=== PATIENT | male | born 1960 | race Caucasian/White ===

== ENCOUNTER 2022-01-11 15:13 | Outpatient (CLI) | payer OTHER ==
[2022-01-12 12:39] LABS: SARS-CoV-2 PCR by NAA Not Detected (NotDetected)
== END 2022-01-11 15:14 | disposition home or self-care (01) ==
LOC: CSHLAB 15:13
PROVIDERS: ATTEND Family Medicine
DX: Z20.822 Contact with and (suspected) exposure to COVID-19 (principal)
CPT/HCPCS: U0003; U0005

== ENCOUNTER 2023-03-31 09:42 | Inpatient (IN) | payer OTHER ==
[2023-03-31 10:32] LABS: #Basophils 0.1 10x3/uL (0.0-0.2); #Monocytes 2.7 10x3/uL (0.0-1.1); #Neutrophils 12.8 10x3/uL (1.5-8.4); %Basophils 0.7 % (0.0-2.0); %Eosinophils 0.2 % (0.0-6.0); %Monocytes 14.2 % (0.0-10.0); %Neutrophils 66.5 % (40.0-75.0); Mean Corpuscular HGB CONC 34.9 g/dL (32.0-36.0); Mean Corpuscular Hemoglobin 32.5 pg (27.0-33.0); Platelet Count 395 10x3/uL (150-450); RBC Distribution Width 12.4 % (11.5-14.5); Red Blood Cell (RBC) Count 4.31 10x6/uL (4.32-5.72); White Blood Cell (WBC) Count 19.2 10x3/uL (3.5-10.5)
[2023-03-31 11:04] LABS: ALT (SGPT) 10 U/L (8-55); AST (SGOT) 20 U/L (5-34); Albumin 3.3 g/dL (3.4-4.8); Alkaline Phosphatase 55 U/L (40-110); Anion Gap 22 mmol/L (10-20); BUN (Urea Nitrogen) 40 mg/dL (8.4-25.7); Calc. Creatinine Clearance 0 mL/min (70-130); Calcium 8.5 mg/dL (7.8-10.44); Carbon Dioxide 25 mmol/L (23-31); Chloride 80 mmol/L (98-107); Estimated GFR 38; Globulin 3.4 g/dL (2.4-3.5); Glucose 174 mg/dL (80-115); Potassium 3.8 mmol/L (3.5-5.1); Protein, Total 6.7 g/dL (5.8-8.1); Sodium 123 mmol/L (136-145)
[2023-03-31] MEDS ORDERED: Cefepime 2 GM VIAL ONE (11:34)
[2023-03-31] MEDS ORDERED: Vancomycin 1 GM VIAL ONE (11:34)
[2023-03-31] MEDS ORDERED: Acetaminophen 325 MG TAB PO PRN (12:58)
[2023-03-31] MEDS ORDERED: Ondansetron PF 4 MG/2 ML Vial IVP PRN (12:58)
[2023-03-31 14:10] LABS: Actual Bicarbonate (HCO3v) 29.1 mEq/L (22-28); Base Excess 4.7 mEq/L (-2 - +2); Calcium, Ionized (venous) 0.95 mmol/L (1.16-1.32); Chloride (VBG) 89 mmol/L (98-106); Hematocrit-VBG 40 % (42.0-52.0); Hemoglobin (Hb) 13.7 g/dL (13.1-17.2); Potassium (VBG) 3.29 mmol/L (3.70-5.30); Puncture Site Other Site; RapidComm Collect By LAB; pH (venous) 7.455 (7.32-7.43)
[2023-03-31 14:14] LABS: #Basophils 0.1 10x3/uL (0.0-0.2); #Monocytes 2.4 10x3/uL (0.0-1.1); #Neutrophils 13.8 10x3/uL (1.5-8.4); %Basophils 0.4 % (0.0-2.0); %Eosinophils 0.1 % (0.0-6.0); %Lymphocytes 13.6 % (18.0-47.0); %Monocytes 12.3 % (0.0-10.0); %Neutrophils 71.8 % (40.0-75.0); Hemoglobin 12.3 g/dL (13.5-17.5); Mean Corpuscular HGB CONC 34.8 g/dL (32.0-36.0); Mean Corpuscular Hemoglobin 32.1 pg (27.0-33.0); Mean Corpuscular Volume 92.2 fl (81.2-95.1); Mean Platelet Volume 9.7 fl (7.4-10.4); Platelet Count 378 10x3/uL (150-450); RBC Distribution Width 12.4 % (11.5-14.5); Red Blood Cell (RBC) Count 3.83 10x6/uL (4.32-5.72); White Blood Cell (WBC) Count 19.3 10x3/uL (3.5-10.5)
[2023-03-31 14:27] LABS: Bilirubin Neg (Negative); Blood, Urine Negative (Negative); Clarity Clear (Clear); Glucose, Urine (Dipstick) >=1000 mg/dL (Negative); Ketone, Urine 5 mg/dL (Negative); Leukocyte Negative (Negative); Nitrite Negative (Negative); Protein, Urine (Dipstick) 15 mg/dl (Neg-Trace); pH, Urine 6.5 (5.0-9.0)
[2023-03-31] MEDS: Sodium Chloride 0.9% 1,000 ML IV SCH ×2 (14:36→20:24)
[2023-03-31 14:44] LABS: Bacteria/HPF Rare-Few HPF (None Seen); CAUTI Indications for Culture Fever or rigors; RBC/HPF None Seen HPF (0-3); Squamous Epithelial 0-3 HPF (0-3); WBC/HPF None Seen HPF (0-3)
[2023-03-31 14:46] LABS: Urine Culture Reflex No No
[2023-03-31] MEDS: Sodium Bicarbonate Tab 325 MG TAB PO SCH ×2 (16:10→20:24)
[2023-03-31] MEDS ORDERED: Dextrose 5% in Water 1,000 ML IV PRN (16:37)
[2023-03-31] MEDS ORDERED: HumaLOG 300 UNITS/3 ML VIAL SC PRN (16:37)
[2023-03-31] MEDS ORDERED: Dextrose 50% Abboject 50 ML SYRINGE SLOW IVP PRN (16:37)
[2023-03-31] MEDS ORDERED: Glucagon 1 MG/ML KIT IM PRN (16:37)
[2023-03-31 19:47] VITALS: BMI 26.3
[2023-03-31] MEDS: Cefepime 2 GM in Sodium Chloride 0.9% 100 ML IVPB SCH (22:32)
[2023-04-01] MEDS: Sodium Chloride 0.9% 1,000 ML IV SCH ×4 (02:08→23:29)
[2023-04-01 04:03] LABS: #Basophils 0.1 10x3/uL (0.0-0.2); #Monocytes 1.7 10x3/uL (0.0-1.1); #Neutrophils 9.7 10x3/uL (1.5-8.4); %Basophils 0.4 % (0.0-2.0); %Eosinophils 0.3 % (0.0-6.0); %Lymphocytes 20.9 % (18.0-47.0); %Monocytes 11.1 % (0.0-10.0); %Neutrophils 65.4 % (40.0-75.0); Hemoglobin 10.7 g/dL (13.5-17.5); Mean Corpuscular HGB CONC 34.1 g/dL (32.0-36.0); Mean Platelet Volume 9.9 fl (7.4-10.4); Platelet Count 426 10x3/uL (150-450); RBC Distribution Width 12.6 % (11.5-14.5); Red Blood Cell (RBC) Count 3.34 10x6/uL (4.32-5.72); White Blood Cell (WBC) Count 14.8 10x3/uL (3.5-10.5)
[2023-04-01 04:07] LABS: Anion Gap 14 mmol/L (10-20); BUN (Urea Nitrogen) 29 mg/dL (8.4-25.7); Calc. Creatinine Clearance 76 mL/min (70-130); Calcium 8.1 mg/dL (7.8-10.44); Carbon Dioxide 27 mmol/L (23-31); Chloride 94 mmol/L (98-107); Estimated GFR 63; Glucose 111 mg/dL (80-115); Sodium 132 mmol/L (136-145)
[2023-04-01] MEDS ORDERED: Potassium Chloride 20 MEQ TAB PO SCH (08:00)
[2023-04-01] MEDS: Sodium Bicarbonate Tab 325 MG TAB PO SCH ×3 (08:33→21:07)
[2023-04-01] MEDS: Cefepime 2 GM in Sodium Chloride 0.9% 100 ML IVPB SCH ×2 (12:19→23:29)
[2023-04-01] MEDS ORDERED: Vancomycin 1.5 GRAM/300 ML BAG 1.5 GM in Premix Bag 1 BAG IVPB SCH (13:00)
[2023-04-01] MEDS: Acetaminophen 325 MG TAB PO SCH ×2 (16:11→21:06)
[2023-04-01] MEDS: Atorvastatin Calcium 20 MG TAB PO SCH (21:07)
[2023-04-01] MEDS ORDERED: Sodium Chloride 0.9% 1,000 ML ONE (23:26)
[2023-04-02] MEDS: Sodium Chloride 0.9% 1,000 ML IV SCH ×2 (05:08→12:18)
[2023-04-02 06:41] LABS: Lactic Acid 1.4 mmol/L (0.5-2.2)
[2023-04-02 06:42] LABS: Anion Gap 15 mmol/L (10-20); BUN (Urea Nitrogen) 22 mg/dL (8.4-25.7); Calc. Creatinine Clearance 102 mL/min (70-130); Calcium 8.2 mg/dL (7.8-10.44); Carbon Dioxide 21 mmol/L (23-31); Chloride 105 mmol/L (98-107); Estimated GFR 90; Glucose 98 mg/dL (80-115); Magnesium 1.5 mg/dL (1.6-2.6); Sodium 138 mmol/L (136-145)
[2023-04-02 07:02] LABS: #Basophils 0.1 10x3/uL (0.0-0.2); #Eosinphils 0.3 10x3/uL (0.0-0.5); #Monocytes 1.6 10x3/uL (0.0-1.1); #Neutrophils 9.8 10x3/uL (1.5-8.4); %Basophils 0.7 % (0.0-2.0); %Eosinophils 2.1 % (0.0-6.0); %Lymphocytes 20.9 % (18.0-47.0); %Monocytes 10.2 % (0.0-10.0); %Neutrophils 63.9 % (40.0-75.0); Hemoglobin 10.9 g/dL (13.5-17.5); Mean Corpuscular HGB CONC 33.3 g/dL (32.0-36.0); Mean Corpuscular Hemoglobin 32.2 pg (27.0-33.0); Mean Corpuscular Volume 96.5 fl (81.2-95.1); Mean Platelet Volume 9.5 fl (7.4-10.4); Platelet Count 552 10x3/uL (150-450); RBC Distribution Width 13.3 % (11.5-14.5); Red Blood Cell (RBC) Count 3.39 10x6/uL (4.32-5.72); White Blood Cell (WBC) Count 15.3 10x3/uL (3.5-10.5)
[2023-04-02] MEDS: Sodium Bicarbonate Tab 325 MG TAB PO SCH ×3 (08:01→21:13)
[2023-04-02] MEDS: Acetaminophen 325 MG TAB PO SCH ×3 (08:02→21:13)
[2023-04-02] MEDS: Magnesium Oxide 400 MG TAB PO SCH (08:03)
[2023-04-02] MEDS: Empagliflozin 25 MG TAB PO SCH (08:03)
[2023-04-02] MEDS ORDERED: Potassium Chloride 20 MEQ TAB PO SCH (09:00)
[2023-04-02 12:15] LABS: Vancomycin, Trough 9.8 ug/mL
[2023-04-02] MEDS: Cefepime 2 GM in Sodium Chloride 0.9% 100 ML IVPB SCH ×2 (12:18→23:37)
[2023-04-02] MEDS: Vancomycin HCl 1 GM in Sodium Chloride 0.9% 250 ML 250 ML IVPB SCH (13:20)
[2023-04-02] MEDS ORDERED: Polyethylene Glycol 3350 17 GM Packet PO PRN (13:26)
[2023-04-02] MEDS ORDERED: Bisacodyl 10 MG SUPP PR PRN (13:26)
[2023-04-02] MEDS: Atorvastatin Calcium 20 MG TAB PO SCH (21:15)
[2023-04-03] MEDS: Vancomycin HCl 1 GM in Sodium Chloride 0.9% 250 ML 250 ML IVPB SCH ×2 (01:02→15:39)
[2023-04-03 07:31] LABS: #Basophils 0.1 10x3/uL (0.0-0.2); #Eosinphils 0.7 10x3/uL (0.0-0.5); #Monocytes 1.2 10x3/uL (0.0-1.1); #Neutrophils 7.6 10x3/uL (1.5-8.4); %Eosinophils 5.2 % (0.0-6.0); %Lymphocytes 25.5 % (18.0-47.0); %Monocytes 9.1 % (0.0-10.0); %Neutrophils 56.6 % (40.0-75.0); Hemoglobin 12.2 g/dL (13.5-17.5); Mean Corpuscular HGB CONC 33.3 g/dL (32.0-36.0); Mean Corpuscular Hemoglobin 32.6 pg (27.0-33.0); Mean Corpuscular Volume 97.9 fl (81.2-95.1); Mean Platelet Volume 9.3 fl (7.4-10.4); Platelet Count 664 10x3/uL (150-450); RBC Distribution Width 13.8 % (11.5-14.5); Red Blood Cell (RBC) Count 3.74 10x6/uL (4.32-5.72); White Blood Cell (WBC) Count 13.4 10x3/uL (3.5-10.5)
[2023-04-03 07:41] LABS: Anion Gap 16 mmol/L (10-20); BUN (Urea Nitrogen) 18 mg/dL (8.4-25.7); Calc. Creatinine Clearance 113 mL/min (70-130); Calcium 8.9 mg/dL (7.8-10.44); Carbon Dioxide 21 mmol/L (23-31); Chloride 106 mmol/L (98-107); Estimated GFR 97; Glucose 82 mg/dL (80-115); Potassium 3.4 mmol/L (3.5-5.1); Sodium 140 mmol/L (136-145)
[2023-04-03] MEDS: Sodium Bicarbonate Tab 325 MG TAB PO SCH ×3 (09:00→21:29)
[2023-04-03] MEDS: Acetaminophen 325 MG TAB PO SCH ×3 (09:00→21:29)
[2023-04-03] MEDS: Polyethylene Glycol 3350 17 GM Packet PO SCH (15:43)
[2023-04-03] MEDS: Magnesium Oxide 400 MG TAB PO SCH (15:43)
[2023-04-03] MEDS: Empagliflozin 25 MG TAB PO SCH (15:44)
[2023-04-03] MEDS: Cefepime 2 GM in Sodium Chloride 0.9% 100 ML IVPB SCH (18:13)
[2023-04-03] MEDS: Atorvastatin Calcium 20 MG TAB PO SCH (21:30)
[2023-04-04 00:30] LABS: Vancomycin, Trough 17.4 ug/mL
[2023-04-04] MEDS: Vancomycin HCl 1 GM in Sodium Chloride 0.9% 250 ML 250 ML IVPB SCH (01:21)
[2023-04-04 05:58] LABS: #Basophils 0.1 10x3/uL (0.0-0.2); #Eosinphils 0.6 10x3/uL (0.0-0.5); #Monocytes 0.9 10x3/uL (0.0-1.1); #Neutrophils 5.8 10x3/uL (1.5-8.4); %Basophils 0.9 % (0.0-2.0); %Eosinophils 5.5 % (0.0-6.0); %Monocytes 8.3 % (0.0-10.0); Hemoglobin 11.1 g/dL (13.5-17.5); Mean Corpuscular Hemoglobin 32.4 pg (27.0-33.0); Mean Platelet Volume 8.9 fl (7.4-10.4); Platelet Count 664 10x3/uL (150-450); Red Blood Cell (RBC) Count 3.43 10x6/uL (4.32-5.72); White Blood Cell (WBC) Count 10.5 10x3/uL (3.5-10.5)
[2023-04-04 06:07] LABS: Anion Gap 16 mmol/L (10-20); BUN (Urea Nitrogen) 18 mg/dL (8.4-25.7); Calc. Creatinine Clearance 121 mL/min (70-130); Calcium 8.7 mg/dL (7.8-10.44); Carbon Dioxide 21 mmol/L (23-31); Chloride 106 mmol/L (98-107); Estimated GFR 99; Glucose 88 mg/dL (80-115); Sodium 140 mmol/L (136-145)
[2023-04-04] MEDS ORDERED: Potassium Chloride 20 MEQ TAB PO SCH (09:00)
[2023-04-04] MEDS: Acetaminophen 325 MG TAB PO SCH ×3 (09:13→22:01)
[2023-04-04] MEDS: Sodium Bicarbonate Tab 325 MG TAB PO SCH ×3 (09:14→22:00)
[2023-04-04] MEDS: Empagliflozin 25 MG TAB PO SCH (09:14)
[2023-04-04] MEDS: Magnesium Oxide 400 MG TAB PO SCH (09:14)
[2023-04-04] MEDS: Polyethylene Glycol 3350 17 GM Packet PO SCH (09:25)
[2023-04-04] MEDS: Atorvastatin Calcium 20 MG TAB PO SCH (22:01)
[2023-04-05 04:29] LABS: #Basophils 0.1 10x3/uL (0.0-0.2); #Eosinphils 0.7 10x3/uL (0.0-0.5); #Monocytes 0.9 10x3/uL (0.0-1.1); #Neutrophils 4.8 10x3/uL (1.5-8.4); %Basophils 0.8 % (0.0-2.0); %Eosinophils 6.8 % (0.0-6.0); %Lymphocytes 31.3 % (18.0-47.0); %Monocytes 8.9 % (0.0-10.0); %Neutrophils 49.7 % (40.0-75.0); Hemoglobin 11.5 g/dL (13.5-17.5); Mean Corpuscular HGB CONC 33.8 g/dL (32.0-36.0); Mean Corpuscular Hemoglobin 32.1 pg (27.0-33.0); Mean Platelet Volume 8.8 fl (7.4-10.4); Platelet Count 683 10x3/uL (150-450); RBC Distribution Width 13.6 % (11.5-14.5); Red Blood Cell (RBC) Count 3.58 10x6/uL (4.32-5.72); White Blood Cell (WBC) Count 9.6 10x3/uL (3.5-10.5)
[2023-04-05 04:45] LABS: Anion Gap 19 mmol/L (10-20); BUN (Urea Nitrogen) 18 mg/dL (8.4-25.7); Calc. Creatinine Clearance 111 mL/min (70-130); Calcium 9.4 mg/dL (7.8-10.44); Carbon Dioxide 20 mmol/L (23-31); Chloride 104 mmol/L (98-107); Estimated GFR 97; Glucose 79 mg/dL (80-115); Potassium 3.9 mmol/L (3.5-5.1); Sodium 139 mmol/L (136-145)
[2023-04-05] MEDS: Sodium Bicarbonate Tab 325 MG TAB PO SCH ×3 (08:43→22:12)
[2023-04-05] MEDS: Empagliflozin 25 MG TAB PO SCH (08:43)
[2023-04-05] MEDS: Polyethylene Glycol 3350 17 GM Packet PO SCH (08:44)
[2023-04-05] MEDS: Magnesium Oxide 400 MG TAB PO SCH (08:44)
[2023-04-05] MEDS: Acetaminophen 325 MG TAB PO SCH ×3 (08:45→22:14)
[2023-04-05] MEDS: Atorvastatin Calcium 20 MG TAB PO SCH (22:12)
[2023-04-06] MEDS: Magnesium Oxide 400 MG TAB PO SCH (08:34)
[2023-04-06] MEDS: Sodium Bicarbonate Tab 325 MG TAB PO SCH ×3 (08:34→22:07)
[2023-04-06] MEDS: Empagliflozin 25 MG TAB PO SCH (08:34)
[2023-04-06] MEDS: Polyethylene Glycol 3350 17 GM Packet PO SCH (08:35)
[2023-04-06] MEDS: Acetaminophen 325 MG TAB PO SCH ×3 (08:35→22:07)
[2023-04-06] MEDS: Atorvastatin Calcium 20 MG TAB PO SCH (22:07)
[2023-04-07] MEDS: Sodium Bicarbonate Tab 325 MG TAB PO SCH (09:24)
[2023-04-07] MEDS: Magnesium Oxide 400 MG TAB PO SCH (09:24)
[2023-04-07] MEDS: Empagliflozin 25 MG TAB PO SCH (09:24)
[2023-04-07] MEDS: Acetaminophen 325 MG TAB PO SCH (09:25)
[2023-04-07] MEDS: Polyethylene Glycol 3350 17 GM Packet PO SCH (09:25)
[2023-04-07 10:00] VITALS: BP 120/71; TEMP 98
== END 2023-04-07 13:35 | DRG 683 ==
LOC: CSHERS 09:42 → CSHTELE 13:37
PROVIDERS: ADMIT Internal Medicine; ATTEND Hospitalist
PROC: 4A043R1 Measurement of Venous Saturation, Peripheral, Percutaneous Approach (ICD-10-PCS; principal; 2023-03-31)
DX: N17.9 Acute kidney failure, unspecified (principal); E87.1 Hypo-osmolality and hyponatremia; E86.0 Dehydration; M25.421 Effusion, right elbow; I10 Essential (primary) hypertension; E11.9 Type 2 diabetes mellitus without complications; F31.9 Bipolar disorder, unspecified; K59.00 Constipation, unspecified; M25.531 Pain in right wrist; Z88.2 Allergy status to sulfonamides; Z79.899 Other long term (current) drug therapy
CPT/HCPCS: 36415; 36416; 70450; 71045; 80048; 80053; 80202; 81001; 82805; 83605; 83735; 84145; 84484; 85025; 87040; 87077; 87149; 93005; 96361; 96365; 96375; J0692; J1815; J3370; J3490; J7050